=== PATIENT | female | born 1965 | race Caucasian/White ===

== ENCOUNTER → 2016-11-03 | Outpatient (CLI) | payer OTHER ==
--- NOTE | 2016-11-03 08:25 | US ---
EXAMINATION TYPE: US abdomen complete DATE OF EXAM: 11/03/2016 COMPARISON: NONE CLINICAL HISTORY: R10.11 RUQ PAIN. abd pain EXAM MEASUREMENTS: Liver Length: 16.4 cm Gallbladder Wall: 0.2 cm CBD: 0.5 cm Spleen: 10.6 cm Right Kidney: 10.0 x 4.5 x 4.5 cm Left Kidney: 11.1 x 4.9 x 6.6 cm Pancreas: wnl Liver: wnl Gallbladder: anterior wall polyp 2 mm Evidence for sonographic Colunga's sign: no CBD: wnl Spleen: wnl Right Kidney: wnl Left Kidney: 2.2cm simple appearing mid pole cyst Upper IVC: wnl Abd Aorta: wnl The liver is homogenous. The intrahepatic portion of the IVC and proximal abdominal aorta are within normal limits. There is no evidence of shadowing mobile cholelithiasis. 2 mm nonmobile and shadowin g focus is felt to reflect tiny polyp. Common bile duct is unremarkable. The visualized portions of the pancreas are homogenous. The spleen is unremarkable. Kidneys are symmetric and free of hydrone phrosis. No suspicious renal lesions are seen. A 2.2 cm simple appearing cyst left kidney is seen in lower pole level. IMPRESSION: No significant finding is seen to account for patient's symptoms.
== END | disposition home or self-care (01) ==
LOC: RADUSWWP 06:49
PROVIDERS: ATTEND Family Medicine
DX: R10.11 Right upper quadrant pain (principal)
CPT/HCPCS: 76700

== ENCOUNTER → 2017-04-02 | Outpatient (CLI) | payer BC ==
--- NOTE | 2017-04-03 09:40 | CT ---
EXAMINATION TYPE: CT abdomen pelvis w con DATE OF EXAM: 04/02/2017 COMPARISON: NONE INDICATION: Pelvic pain, worse on left x 3 weeks. Some diarrhea. DLP: 598 mGycm, Automated exposure control for dose reduction was used. CONTRAST: 100 mL of Omnipaque 300. Study performed with Oral Contrast TECHNIQUE: Axial images were obtained from above the diaphragm to the pubic rami in the axial plane a t 5 mm thick sections. Reconstructed images are reviewed on the computer in the coronal plane. FINDINGS: Limited CT sections are obtained the lung bases. The lung bases are clear. CT ABDOMEN: Liver: Normal Spleen: Normal Pancreas: Normal Adrenal glands: The adrenal glands are normal. Gallbladder: Normal Kidneys: No masses are evident. No hydronephrosis is present. There is a 2.1 cm cyst on the mid lef t kidney measuring 16 Hounsfield units. Delayed images were obtained through the kidneys, which jimmie in unremarkable. Aorta: Vascular calcification is within the aorta. Inferior vena cava: Normal. CT PELVIS: Loops of bowel within the abdomen and pelvis are normal. There are loops of bowel which are incom pletely distended or lack oral contrast limiting their evaluation. Appendix: Not identified. No suspicious inflammatory changes are evident. Urinary bladder: Normal. Genitourinary structures: Uterus and adnexa appear normal. There is a 4.6 x 4.2 cm hypodense area wit hin the posterior right pelvis. This may be a right adnexal cyst. This could be further evaluated wit h ultrasound. Free fluid could be considered within the differential. Osseous structures: No suspicious lytic or sclerotic lesions. IMPRESSIONS: 1. Probable posterior right adnexal cyst. This could be further evaluated with ultrasound. 2. No specific abnormality to account for left lower quadrant pain. 3. Left renal cyst
== END | disposition home or self-care (01) ==
LOC: RADCTMAIN 16:42
PROVIDERS: ATTEND Family Medicine
DX: N28.1 Cyst of kidney, acquired (principal)
CPT/HCPCS: 74177; Q9967

== ENCOUNTER → 2017-04-10 | Outpatient (CLI) | payer BC ==
--- NOTE | 2017-04-10 15:53 | US ---
EXAMINATION TYPE: US pelvic complete DATE OF EXAM: 04/10/2017 COMPARISON: CT CLINICAL HISTORY: N83.209 Unspecified Ovarian Cyst. TECHNIQUE: Transabdominal (TA) Date of LMP: 03/29/2017 EXAM MEASUREMENTS: Uterus: 9.2 x 5.6 x 6.9 cm Endometrial Stripe: 0.9 cm Right Ovary: 5.3 x 3.2 x 3.2 cm Left Ovary: 3.1 x 1.3 x 2.7 cm 1. Uterus: Anteverted anterior fibroid measures 1.7 x 1.4 x 1.8 cm 2. Endometrium: wnl 3. Right Ovary: simple appearing cyst measuring 4.3 x 2.3 x 1.9 cm 4. Left Ovary: wnl 5. Bilateral Adnexa: wnl 6. Posterior cul-de-sac: wnl IMPRESSION: 1. Uterine leiomyoma. 2. Simple cyst right ovary.
== END | disposition home or self-care (01) ==
LOC: RADUSWWP 15:15
PROVIDERS: ATTEND Physician Assistant
DX: N83.291 Other ovarian cyst, right side (principal); D25.9 Leiomyoma of uterus, unspecified
CPT/HCPCS: 76856

== ENCOUNTER 2017-07-31 11:07 | Emergency (ER) | payer BC ==
[2017-07-31 11:12] VITALS: TEMP 97
[2017-07-31] MEDS ORDERED: IBUPROFEN 800 MG TAB PO STA (11:26)
--- NOTE | 2017-07-31 11:27 | ED ---
General Adult HPI - General Chief complaint: Abdominal Pain Stated complaint: Side pain Time Seen by Provider: 07/31/17 11:13 Source: patient Mode of arrival: ambulatory Limitations: no limitations - History of Present Illness Initial comments: Patient is a 52-year-old female who presents with a chief complaint of right- sided back and flank pain. The patient states that over the weekend she was raking leaves and today she bent down tie her shoe and expressed a sharp pain in her back. The patient states that certain movements or aggravating, sitting still in Motrin or alleviating factors. Timing is been intermittent. Patient says that she is currently being treated for a urinary tract infection, she does not have a history of kidney stones. Patient has other significant medical history of hypertension, hypercholesterolemia, and diabetes. - Related Data Home Medications Medication Instructions Recorded Confirmed Atorvastatin [Lipitor] 10 mg PO DAILY 07/31/17 07/31/17 Cholecalciferol [Vitamin D3] 1,000 unit PO DAILY 07/31/17 07/31/17 Fluticasone/Salmeterol [Advair 1 puff INHALATION RT-BID 07/31/17 07/31/17 500-50 Diskus] Multivitamins, Thera [Multivitamin 1 tab PO DAILY 07/31/17 07/31/17 (formulary)] Sertraline HCl [Zoloft] 100 mg PO DAILY 07/31/17 07/31/17 Sulfamethox-Tmp 800-160Mg [Bactrim 1 tab PO Q12HR 07/31/17 07/31/17 DS 800-160 mg] metFORMIN HCL [Glucophage] 500 mg PO DAILY 07/31/17 07/31/17 risperiDONE [RisperDAL] 2 mg PO HS 07/31/17 07/31/17 Previous Rx's Medication Instructions Recorded Ibuprofen [Motrin] 800 mg PO TID #20 tab 07/31/17 Methocarbamol [Robaxin-750] 750 mg PO DIRECTED PRN #5 tablet 07/31/17 Allergies Allergy/AdvReac Type Severity Reaction Status Date / Time No Known Allergies Allergy Verified 07/31/17 11:17 Review of Systems ROS Statement: Those systems with pertinent positive or pertinent negative responses have been documented in the HPI. ROS Other: All systems not noted in ROS Statement are negative. Musculoskeletal: Reports: back pain Past Medical History Past Medical History: COPD, Diabetes Mellitus, Hyperlipidemia History of Any Multi-Drug Resistant Organisms: None Reported Past Surgical History: Tubal Ligation Past Psychological History: Depression Smoking Status: Current every day smoker Past Alcohol Use History: None Reported Past Drug Use History: None Reported General Exam Limitations: no limitations General appearance: alert, in no apparent distress Head exam: Present: atraumatic, normocephalic Eye exam: Present: normal appearance ENT exam: Present: normal exam Neck exam: Present: normal inspection Respiratory exam: Present: normal lung sounds bilaterally. Absent: respiratory distress, wheezes Cardiovascular Exam: Present: regular rate, normal rhythm GI/Abdominal exam: Present: soft. Absent: distended, tenderness Rectal exam: Present: deferred Extremities exam: Present: normal inspection Back exam: Present: normal inspection, full ROM, paraspinal tenderness (patient has exacerbation of pain in her right lower back with foreward flexion and left rotation. ). Absent: CVA tenderness (R), CVA tenderness (L) Course Vital Signs 07/31/17 07/31/17 11:09 12:17 Temperature 97.0 F L Pulse Rate 72 68 Respiratory 18 16 Rate Blood Pressure 115/56 113/58 O2 Sat by Pulse 98 98 Oximetry Medical Decision Making - Medical Decision Making Patient presents with chief complaint of right-sided back pain. On initial evaluation, vital signs are stable, patient is in no acute distress. Patient will be evaluated with EKG and urinalysis. Given that the patient currently has a urinary tract infection, we will evaluate for blood to see if there is necessity for imaging today. Patient given Motrin for pain control. 12:29 PM Evaluation urine shows no evidence of infection or hematuria. Etiology such as kidney stones are unlikely. EKG performed at 11:50 AM shows normal sinus rhythm a rate of 72 bpm. EKG is otherwise unremarkable. At this time, patient is stable for discharge and outpatient management. She is prescribed Motrin and Robaxin. She was instructed on the use of these medications. Patient was given exposed signs and symptoms that should prompt return visit to the emergency department. Patient verbalizes understanding. - Lab Data Lab Results 07/31/17 Range/Units 11:52 Urine Color Colorless Urine Appearance Clear (Clear) Urine pH 6.0 (5.0-8.0) Ur Specific [place] 1.001 (1.001-1.035) Urine Protein Negative (Negative) Urine Glucose (UA) Negative (Negative) Urine Ketones Negative (Negative) Urine Blood Negative (Negative) Urine Nitrite Negative (Negative) Urine Bilirubin Negative (Negative) Urine Urobilinogen <2.0 (<2.0) mg/dL Ur Leukocyte Esterase Negative (Negative) Disposition Clinical Impression: Back pain Disposition: HOME SELF-CARE Condition: Good Instructions: Low Back Strain (ED) Prescriptions: Ibuprofen [Motrin] 800 mg PO TID #20 tab Methocarbamol [Robaxin-750] 750 mg PO DIRECTED PRN #5 tablet PRN Reason: Muscle Spasm Is patient prescribed a controlled substance at d/c from ED?: No Referrals: Tony Skinner MD [Primary Care Provider] - 1-2 days
[2017-07-31 11:56] LABS: Appearance,Urine Clear (Clear); Bilirubin,Urine Negative (Negative); Blood,Urine Negative (Negative); Color,Urine Colorless; Glucose,Urine (UA) Negative (Negative); Ketones,Urine Negative (Negative); Leukocyte Esterase,Urine Negative (Negative); Nitrite,Urine Negative (Negative); Protein,Urine Negative (Negative); Specific Gravity,Urine 1.001 (1.001-1.035); Urobilinogen,Urine <2.0 mg/dL (<2.0)
[2017-07-31 12:19] VITALS: BP 113/58; PULSE 68; RESP 16
== END 2017-07-31 12:40 | disposition home or self-care (01) ==
LOC: EC 11:07
DX: M54.5 Low back pain (principal); R10.9 Unspecified abdominal pain; J44.9 Chronic obstructive pulmonary disease, unspecified; E11.9 Type 2 diabetes mellitus without complications; E78.5 Hyperlipidemia, unspecified; F32.9 Major depressive disorder, single episode, unspecified; F17.200 Nicotine dependence, unspecified, uncomplicated; Z79.51 Long term (current) use of inhaled steroids; Z79.84 Long term (current) use of oral hypoglycemic drugs; Z79.899 Other long term (current) drug therapy; E78.00 Pure hypercholesterolemia, unspecified
CPT/HCPCS: 81003; 93005; 99284

== ENCOUNTER 2017-11-06 07:40 | Day surgery (SDC) | payer BC ==
[2017-11-01 15:29] VITALS: BMI 29.8
[~2017-11-06 07:40] MED LIST: LACTATED RINGERS 1,000 ML IV SCH; LIDOCAINE 1% 20 ML VIAL (10MG/ML) FOR IV START INTRADERMA PRN; MIDAZOLAM 2 MG/2 ML VIAL IV PRN
[2017-11-06 08:34] VITALS: TEMP 98.2
[2017-11-06 08:38] LABS: Glucose,Whole Blood 88 mg/dL (75-99)
[2017-11-06] MEDS ORDERED: MIDAZOLAM 2 MG/2 ML VIAL ONE (08:48)
[2017-11-06] MEDS ORDERED: PROPOFOL 10 MG/ML 20 ML VIAL IV ONE (08:48)
[2017-11-06] MEDS ORDERED: fentaNYL (PF) 50 MCG/ML 2 ML AMP ONE (08:48)
--- NOTE | 2017-11-06 09:18 | P.PCN ---
Date of Procedure: 11/06/17 Procedure(s) Performed: Procedure: Colonoscopy and biopsy. Preoperative diagnosis: Change in bowel habits. Postoperative diagnosis: Exam of the colon and terminal ileum within normal limits. Preparation: HalfLytely prep. Sedation: Was provided by anesthesia. Brief clinical history: The patient is a 52-year-old female who is scheduled for this evaluation because of change in bowel habits in the form of loose/ diarrheic bowel movements, mostly in the mornings, that has been going on for sometime. No bleeding or extraintestinal manifestations of inflammatory bowel disease. No family history of colon cancer. This would be her first colonoscopy. Procedure: With the patient on her left lateral decubitus position and after informed consent and adequate sedation the perianal area was inspected and it did not show any fissures or fistulas. There were no masses felt on digital rectal examination. The Olympus CFQ 160L video colonoscope was then inserted in the rectum in the usual fashion and advanced to the cecum. I intubated the ileocecal valve and examined the terminal ileum. Terminal ileum and colon appeared healthy with no edema, erythema, friability, ulceration, exudation or spontaneous bleeding. No polyps or tumors were seen or any obvious diverticular disease or other pathology. I obtained biopsies from the terminal ileum and randomly from the colon then I retroflexed the endoscope in the rectum before the endoscope was withdrawn. The patient tolerated the procedure well. Plan: The patient was reassured. Will await biopsy results. She will follow- up with you as planned and further plans can be made based on her course and biopsy results. For screening for colon cancer, I recommended repeat exam in 10 years.
[2017-11-06 09:46] VITALS: BP 124/85; PULSE 63; RESP 18
== END 2017-11-06 09:59 | disposition home or self-care (01) ==
LOC: ORWHC2ENDO 07:40
DX: R19.7 Diarrhea, unspecified (principal); F17.210 Nicotine dependence, cigarettes, uncomplicated; E11.9 Type 2 diabetes mellitus without complications; J44.9 Chronic obstructive pulmonary disease, unspecified; E78.5 Hyperlipidemia, unspecified
CPT/HCPCS: 81025; 45380; J2250; J3010; J2704; 88305

== ENCOUNTER → 2018-04-01 | Outpatient (CLI) | payer BC ==
--- NOTE | 2018-04-01 16:14 | XR ---
EXAMINATION TYPE: XR chest 2V DATE OF EXAM: 04/01/2018 COMPARISON: NONE HISTORY: Chronic cough and nicotine dependence TECHNIQUE: Frontal and lateral views of the chest are obtained. FINDINGS: There is no focal air space opacity, pleural effusion, or pneumothorax seen. The cardiac silhouette size is within normal limits. The osseous structures are intact, spondylosis noted in th e visualized spine. IMPRESSION: No acute cardiopulmonary process.
== END | disposition home or self-care (01) ==
LOC: RADXRMAIN 15:46
PROVIDERS: ATTEND Physician Assistant
DX: F17.200 Nicotine dependence, unspecified, uncomplicated (principal)
CPT/HCPCS: 71046

== ENCOUNTER 2019-12-05 07:14 | Observation (INO) | payer BC ==
[2019-12-05 07:28] LABS: Glucose,Whole Blood 186 mg/dL (75-99)
[2019-12-05] MEDS ORDERED: ASPIRIN 81 MG PO STA (07:29)
[2019-12-05 07:32] VITALS: RESP 18
[2019-12-05] MEDS ORDERED: SODIUM CHLORIDE 0.9% 1,000 ML IV STA (07:38)
--- NOTE | 2019-12-05 07:40 | ED ---
General Adult HPI - General Chief complaint: Syncope Stated complaint: syncope Time Seen by Provider: 12/05/19 07:19 Source: patient, RN notes reviewed, old records reviewed Mode of arrival: EMS Limitations: no limitations - History of Present Illness Initial comments: 54-year-old female patient presents ED for evaluation. Patient reports that she was sitting down she was having a bowel movement and she felt very flushed, she felt little short of breath she had some mild sharp left anterior chest pain. She reportedly then went back to bed, laid down one unresponsive for about 10 minutes. EMS reportedly responded and found patient to be as low as 40/30. Patient was administered fluid bolus and blood pressure did increase to about 120/70 systolic. Patient alert and oriented 3. States that she is feeling much improved denies any more chest pain or shortness of breath. Denies any other complaints. Systemic: Pt denies fatigue, fever/chills, rash. Pt denies weakness, night sweats, weight loss. Neuro: Pt denies headache, visual disturbances, pre-syncope. HEENT: Pt denies ocular discharge or irritation, otalgia, rhinorrhea, pharyngitis or notable lymphadenopathy. Cardiopulmonary: Pt denies heart palpitations, dyspnea on exertion. Abdominal/GI: Pt denies abdominal pain, n/v/d. : Pt denies dysuria, burning w/ urination, frequency/urgency. Denies new onset urinary or bowel incontinence. MSK: Pt denies myalgia, loss of strength or function in extremities. Neuro: Pt denies new onset weakness, paresthesias. - Related Data Home Medications Medication Instructions Recorded Confirmed Atorvastatin [Lipitor] 10 mg PO HS 07/31/17 12/05/19 Sertraline HCl [Zoloft] 100 mg PO DAILY 07/31/17 12/05/19 metFORMIN HCL [Glucophage] 500 mg PO DAILY 07/31/17 12/05/19 risperiDONE [RisperDAL] 2 mg PO HS 07/31/17 12/05/19 Equi-Fem 2 tab PO DAILY 11/01/17 12/05/19 Mometasone/Formoterol [Dulera 200 2 puff INHALATION RT-BID 11/01/17 12/05/19 Mcg/5 Mcg Inhaler] Albuterol Sulfate [Ventolin HFA] 1 - 2 puff INHALATION RT-Q6H PRN 12/05/19 12/05/19 Cranberry Fruit Extract [Cranberry] 500 mg PO DAILY 12/05/19 12/05/19 Allergies Allergy/AdvReac Type Severity Reaction Status Date / Time No Known Allergies Allergy Verified 12/05/19 08:39 Review of Systems ROS Statement: Those systems with pertinent positive or pertinent negative responses have been documented in the HPI. ROS Other: All systems not noted in ROS Statement are negative. Past Medical History Past Medical History: COPD, Diabetes Mellitus, Hyperlipidemia History of Any Multi-Drug Resistant Organisms: None Reported Past Surgical History: Tubal Ligation Past Anesthesia/Blood Transfusion Reactions: No Reported Reaction Past Psychological History: Depression Smoking Status: Current every day smoker Past Alcohol Use History: Rare Past Drug Use History: None Reported - Past Family History Mother Family Medical History: Cancer General Exam - General Exam Comments Initial Comments: Constitutional: NAD, AOX3, Pt has pleasant affect. HEENT: NC/AT, trachea midline, neck supple, no lymphadenopathy. Posterior pharynx non erythematous, without exudates. External ears appear normal, without discharge. Mucous membranes moist. Eyes PERRLA, EOM intact. There is no scleral icterus. No pallor noted. Cardiopulmonary: RRR, no murmurs, rubs or gallops, no JVD noted. Lungs CTAB in anterior and posterior astorga. No peripheral edema. Abdominal exam: Abdomen soft and non-distended. Abdomen non-tender to palpation in all 4 quadrants. Bowel sounds active in LLQ. No hepatosplenomegaly. No ecchymosis Neuro: CN II-XII intact. No nuchal rigidity. No raccon eyes, no barnes sign, no hemotympanum. No cervical spinal tenderness. MSK: No posterior calf tenderness bilaterally, homans sign negative bilaterally. Posterior tibialis and radial pulse +2 bilaterally. Sensation intact in upper and lower extremities. Full active ROM in upper and lower extremities, 5/5 st regnth. Limitations: no limitations Course Vital Signs 12/05/19 12/05/19 12/05/19 07:19 08:03 08:37 Temperature 97.4 F L Pulse Rate 73 75 70 Respiratory 18 18 18 Rate Blood Pressure 99/48 105/63 93/54 O2 Sat by Pulse 99 100 99 Oximetry 12/05/19 09:04 Temperature Pulse Rate 70 Respiratory 18 Rate Blood Pressure 117/58 O2 Sat by Pulse 100 Oximetry Medical Decision Making - Medical Decision Making 54-year-old female patient presents to ED for evaluation of syncope. Patient is having a bowel movement she felt very lightheaded, laid down in bed with her patient was reportedly minimally responsive for the next 10 minutes however would respond to verbal questions and stimuli however less than normal. MS was contacted. Patient is found to be hypotensive. Patient administered fluid bolus. Vital signs are stable patient seemed eminently stable. Physical exam didn't display acute pathology. Patient does report that she had a little bit chest pain shortness of breath during the likely vasovagal episode. Has been symptom-free since arrival to Hospital. Laboratory investigations are obtained patient does have a mild leukocytosis, hypokalemia, hypomagnesemia. These are supplemented. Troponin 0.028. EKG nonischemic. CTA negative for pulmonary embolism. Patient will be admitted for serial troponins, further evaluation. Case discussed with Dr. Mcdermott. - Lab Data Result diagrams: 12/05/19 07:33 12/05/19 07:33 Lab Results 12/05/19 12/05/19 12/05/19 Range/Units 07:18 07:33 07:33 WBC 15.7 H (3.8-10.6) k/uL RBC 4.62 (3.80-5.40) m/uL Hgb 13.8 (11.4-16.0) gm/dL Hct 41.8 (34.0-46.0) % MCV 90.4 (80.0-100.0) fL MCH 29.9 (25.0-35.0) pg MCHC 33.1 (31.0-37.0) g/dL RDW 13.3 (11.5-15.5) % Plt Count 256 (150-450) k/uL Neutrophils % 80 % Lymphocytes % 15 % Monocytes % 3 % Eosinophils % 1 % Basophils % 0 % Neutrophils # 12.6 H (1.3-7.7) k/uL Lymphocytes # 2.4 (1.0-4.8) k/uL Monocytes # 0.5 (0-1.0) k/uL Eosinophils # 0.1 (0-0.7) k/uL Basophils # 0.1 (0-0.2) k/uL PT 10.5 (9.0-12.0) sec INR 1.0 (<1.2) APTT 24.2 (22.0-30.0) sec D-Dimer 1.11 H (<0.60) mg/L FEU Sodium (137-145) mmol/L Potassium (3.5-5.1) mmol/L Chloride (98-107) mmol/L Carbon Dioxide (22-30) mmol/L Anion Gap mmol/L BUN (7-17) mg/dL Creatinine (0.52-1.04) mg/dL Est GFR (CKD-EPI)AfAm (>60 ml/min/1.73 sqM) Est GFR (CKD-EPI)NonAf (>60 ml/min/1.73 sqM) Glucose (74-99) mg/dL POC Glucose (mg/dL) 186 H (75-99) mg/dL POC Glu Unit Assistant ID Diane Longo Plasma Lactic Acid Reji (0.7-2.0) mmol/L Calcium (8.4-10.2) mg/dL Magnesium (1.6-2.3) mg/dL Total Bilirubin (0.2-1.3) mg/dL AST (14-36) U/L ALT (4-34) U/L Alkaline Phosphatase (38-126) U/L Troponin I (0.000-0.034) ng/mL NT-Pro-B Natriuret Pep pg/mL Total Protein (6.3-8.2) g/dL Albumin (3.5-5.0) g/dL Urine Color Urine Appearance (Clear) Urine pH (5.0-8.0) Ur Specific Shunk (1.001-1.035) Urine Protein (Negative) Urine Glucose (UA) (Negative) Urine Ketones (Negative) Urine Blood (Negative) Urine Nitrite (Negative) Urine Bilirubin (Negative) Urine Urobilinogen (<2.0) mg/dL Ur Leukocyte Esterase (Negative) Urine RBC (0-5) /hpf Urine WBC (0-5) /hpf Ur Squamous Epith Cells (0-4) /hpf Hyaline Casts (0-2) /lpf Urine Mucus (None) /hpf 12/05/19 12/05/19 12/05/19 Range/Units 07:33 07:33 07:33 WBC (3.8-10.6) k/uL RBC (3.80-5.40) m/uL Hgb (11.4-16.0) gm/dL Hct (34.0-46.0) % MCV (80.0-100.0) fL MCH (25.0-35.0) pg MCHC (31.0-37.0) g/dL RDW (11.5-15.5) % Plt Count (150-450) k/uL Neutrophils % % Lymphocytes % % Monocytes % % Eosinophils % % Basophils % % Neutrophils # (1.3-7.7) k/uL Lymphocytes # (1.0-4.8) k/uL Monocytes # (0-1.0) k/uL Eosinophils # (0-0.7) k/uL Basophils # (0-0.2) k/uL PT (9.0-12.0) sec INR (<1.2) APTT (22.0-30.0) sec D-Dimer (<0.60) mg/L FEU Sodium 138 (137-145) mmol/L Potassium 3.0 L (3.5-5.1) mmol/L Chloride 109 H (98-107) mmol/L Carbon Dioxide 22 (22-30) mmol/L Anion Gap 7 mmol/L BUN 8 (7-17) mg/dL Creatinine 0.65 (0.52-1.04) mg/dL Est GFR (CKD-EPI)AfAm >90 (>60 ml/min/1.73 sqM) Est GFR (CKD-EPI)NonAf >90 (>60 ml/min/1.73 sqM) Glucose 193 H (74-99) mg/dL POC Glucose (mg/dL) (75-99) mg/dL POC Glu Unit Assistant ID Plasma Lactic Acid Reji (0.7-2.0) mmol/L Calcium 8.2 L (8.4-10.2) mg/dL Magnesium 1.5 L (1.6-2.3) mg/dL Total Bilirubin 0.2 (0.2-1.3) mg/dL AST 20 (14-36) U/L ALT 18 (4-34) U/L Alkaline Phosphatase 85 (38-126) U/L Troponin I 0.028 (0.000-0.034) ng/mL NT-Pro-B Natriuret Pep 42 pg/mL Total Protein 5.2 L (6.3-8.2) g/dL Albumin 3.2 L (3.5-5.0) g/dL Urine Color Urine Appearance (Clear) Urine pH (5.0-8.0) Ur Specific Shunk (1.001-1.035) Urine Protein (Negative) Urine Glucose (UA) (Negative) Urine Ketones (Negative) Urine Blood (Negative) Urine Nitrite (Negative) Urine Bilirubin (Negative) Urine Urobilinogen (<2.0) mg/dL Ur Leukocyte Esterase (Negative) Urine RBC (0-5) /hpf Urine WBC (0-5) /hpf Ur Squamous Epith Cells (0-4) /hpf Hyaline Casts (0-2) /lpf Urine Mucus (None) /hpf 12/05/19 12/05/19 Range/Units 07:33 07:33 WBC (3.8-10.6) k/uL RBC (3.80-5.40) m/uL Hgb (11.4-16.0) gm/dL Hct (34.0-46.0) % MCV (80.0-100.0) fL MCH (25.0-35.0) pg MCHC (31.0-37.0) g/dL RDW (11.5-15.5) % Plt Count (150-450) k/uL Neutrophils % % Lymphocytes % % Monocytes % % Eosinophils % % Basophils % % Neutrophils # (1.3-7.7) k/uL Lymphocytes # (1.0-4.8) k/uL Monocytes # (0-1.0) k/uL Eosinophils # (0-0.7) k/uL Basophils # (0-0.2) k/uL PT (9.0-12.0) sec INR (<1.2) APTT (22.0-30.0) sec D-Dimer (<0.60) mg/L FEU Sodium (137-145) mmol/L Potassium (3.5-5.1) mmol/L Chloride (98-107) mmol/L Carbon Dioxide (22-30) mmol/L Anion Gap mmol/L BUN (7-17) mg/dL Creatinine (0.52-1.04) mg/dL Est GFR (CKD-EPI)AfAm (>60 ml/min/1.73 sqM) Est GFR (CKD-EPI)NonAf (>60 ml/min/1.73 sqM) Glucose (74-99) mg/dL POC Glucose (mg/dL) (75-99) mg/dL POC Glu Unit Assistant ID Plasma Lactic Acid Reji 1.8 (0.7-2.0) mmol/L Calcium (8.4-10.2) mg/dL Magnesium (1.6-2.3) mg/dL Total Bilirubin (0.2-1.3) mg/dL AST (14-36) U/L ALT (4-34) U/L Alkaline Phosphatase (38-126) U/L Troponin I (0.000-0.034) ng/mL NT-Pro-B Natriuret Pep pg/mL Total Protein (6.3-8.2) g/dL Albumin (3.5-5.0) g/dL Urine Color Yellow Urine Appearance Clear (Clear) Urine pH 8.0 (5.0-8.0) Ur Specific Shunk 1.010 (1.001-1.035) Urine Protein 1+ H (Negative) Urine Glucose (UA) Negative (Negative) Urine Ketones Negative (Negative) Urine Blood Negative (Negative) Urine Nitrite Negative (Negative) Urine Bilirubin Negative (Negative) Urine Urobilinogen <2.0 (<2.0) mg/dL Ur Leukocyte Esterase Negative (Negative) Urine RBC <1 (0-5) /hpf Urine WBC 1 (0-5) /hpf Ur Squamous Epith Cells 1 (0-4) /hpf Hyaline Casts 12 H (0-2) /lpf Urine Mucus Rare H (None) /hpf - EKG Data -: EKG Interpreted by Me (and Dr. Mcdermott ) EKG Comments: Ventricular rate 66, AR interval 158, QRS 108, QT/QTC 488/511. Normal sensory rhythm with sinus arrhythmia. Prolonged QT, abnormal EKG. Disposition Clinical Impression: Syncope, Chest pain, Hypomagnesemia, Hypotension, Hypokalemia Disposition: ADMITTED IP TO THIS HOSP Condition: Serious Is patient prescribed a controlled substance at d/c from ED?: No Referrals: Tony Skinner MD [Primary Care Provider] - 1-2 days
[2019-12-05] MEDS ORDERED: SODIUM CHLORIDE 0.9% 500 ML 500 ML IV ONE (07:44)
[2019-12-05 07:47] LABS: Basophils # (A) 0.1 k/uL (0-0.2); Basophils % (A) 0 %; Eosinophils # (A) 0.1 k/uL (0-0.7); Eosinophils % (A) 1 %; HCT 41.8 % (34.0-46.0); HGB 13.8 gm/dL (11.4-16.0); Lymphocytes # (A) 2.4 k/uL (1.0-4.8); Lymphocytes % (A) 15 %; MCH 29.9 pg (25.0-35.0); MCHC 33.1 g/dL (31.0-37.0); MCV 90.4 fL (80.0-100.0); Mean Platelet Volume 6.8; Monocytes # (A) 0.5 k/uL (0-1.0); Monocytes % (A) 3 %; Neutrophils # (A) 12.6 k/uL (1.3-7.7); Neutrophils % (A) 80 %; Platelet Count 256 k/uL (150-450); RBC 4.62 m/uL (3.80-5.40); RDW 13.3 % (11.5-15.5); WBC 15.7 k/uL (3.8-10.6)
[2019-12-05 07:58] LABS: ALT 18 U/L (4-34); AST 20 U/L (14-36); African American GFR (CKD) >90 (>60 ml/min/1.73 sqM); Albumin 3.2 g/dL (3.5-5.0); Alkaline Phosphatase 85 U/L (38-126); Anion Gap 7 mmol/L; Blood Urea Nitrogen 8 mg/dL (7-17); Calcium 8.2 mg/dL (8.4-10.2); Carbon Dioxide 22 mmol/L (22-30); Chloride 109 mmol/L (98-107); Glucose 193 mg/dL (74-99); Magnesium 1.5 mg/dL (1.6-2.3); Non-African American GFR(CKD) >90 (>60 ml/min/1.73 sqM); Sodium 138 mmol/L (137-145); Total Bilirubin 0.2 mg/dL (0.2-1.3); Total Protein 5.2 g/dL (6.3-8.2)
[2019-12-05 08:07] LABS: Partial Thromboplastin Time 24.2 sec (22.0-30.0); Prothrombin Time 10.5 sec (9.0-12.0)
--- NOTE | 2019-12-05 08:10 | XR ---
EXAMINATION TYPE: XR chest 2V DATE OF EXAM: 12/05/2019 COMPARISON: Prior chest x-ray 04/01/2018 HISTORY: Chest pain and weakness TECHNIQUE: Frontal and lateral views of the chest are obtained. FINDINGS: There is no focal air space opacity, pleural effusion, or pneumothorax seen. The cardiac silhouette size is within normal limits. The osseous structures are intact. IMPRESSION: No acute cardiopulmonary process.
[2019-12-05 08:18] LABS: D-Dimer 1.11 mg/L FEU (<0.60)
[2019-12-05] MEDS ORDERED: POTASSIUM CHLORIDE ER 20 MEQ TAB.ER PO STA (08:36)
[2019-12-05] MEDS ORDERED: MAGNESIUM OXIDE 400 MG TAB PO STA (08:36)
[2019-12-05 08:41] LABS: Appearance,Urine Clear (Clear); Bilirubin,Urine Negative (Negative); Blood,Urine Negative (Negative); Color,Urine Yellow; Glucose,Urine (UA) Negative (Negative); Hyaline Casts,Urine 12 /lpf (0-2); Ketones,Urine Negative (Negative); Leukocyte Esterase,Urine Negative (Negative); Mucus,Urine Rare /hpf; Nitrite,Urine Negative (Negative); Protein,Urine 1+ (Negative); RBC,Urine <1 /hpf (0-5); Squamous Epithelial Cell,Urine 1 /hpf (0-4); Urobilinogen,Urine <2.0 mg/dL (<2.0); WBC,Urine 1 /hpf (0-5)
--- NOTE | 2019-12-05 09:19 | CT ---
EXAMINATION TYPE: CT chest angio for PE DATE OF EXAM: 12/05/2019 COMPARISON: None HISTORY: Elev. D dimer CT DLP: 444.2 mGycm CONTRAST: CT chest with contrast and 3D reconstruction with MIP imaging is performed with IV Contrast, patient injected with 80 mL of Isovue 370. Contrast-enhanced CT of the chest was performed through the course of the pulmonary arteries with verna g and mediastinal window settings submitted. 3D reconstruction with MIP imaging was also performed. PULMONARY ARTERIES: The pulmonary arteries and their major tributaries are patent. I do not see claudy dence for sizable filling defect to suggest pulmonary embolic process. LUNGS: The lungs are clear and free of infiltrate. Minimal basilar atelectasis and tiny effusions. No pulmonary nodule or mass is detected. MEDIASTINUM: Thoracic aorta is of normal caliber,however, evaluation is limited given timing of the contrast bolus. If there is concern for thoracic aortic pathology consider DANIEL. Correlate clinicall y . The heart is not enlarged. No evidence for mediastinal mass. No mediastinal lymph nodes greater than 1cm. HILAR STRUCTURES: No evidence for mass. No hilar lymph nodes greater than 1 cm. UPPER ABDOMEN: No significant abnormality is seen. IMPRESSION: 1. No evidence for Pulmonary embolism at this time.
[2019-12-05] MEDS ORDERED: NITROGLYCERIN SL TABS 0.4 MG TAB SUBLINGUAL PRN (09:25)
[2019-12-05] MEDS ORDERED: Potassium Replacement Protocol 1 EACH MISC MISCELLANE PRN (10:26)
[2019-12-05] MEDS ORDERED: Magnesium Replacement Protocol 1 EACH MISC MISCELLANE PRN (10:28)
[2019-12-05] MEDS ORDERED: ALBUTEROL NEBULIZED 2.5 MG/3 ML INHALATION PRN (11:56)
[2019-12-05 12:12] LABS: Glucose,Whole Blood 81 mg/dL (75-99)
[2019-12-05] MEDS: MAGNESIUM SULFATE-D5W PMX 1 GM in DEXTROSE/WATER 1 100ML.BAG IVPB SCH ×4 (12:32→16:36)
[2019-12-05] MEDS: POTASSIUM CHLORIDE ER 20 MEQ TAB.ER PO SCH ×2 (12:32→13:57)
[2019-12-05] MEDS: SODIUM CHLORIDE 0.9% 1,000 ML IV SCH (12:36)
[2019-12-05] MEDS: INSULIN ASPART (NovoLOG) 100 UNIT/ML VIAL SQ SCH ×2 (12:36→17:10)
[2019-12-05] MEDS ORDERED: HEPARIN SODIUM,PORCINE 5,000 UNIT/ML 1 ML VIAL IV PRN (12:46)
[2019-12-05] MEDS ORDERED: HEPARIN SODIUM,PORCINE 5,000 UNIT/ML 1 ML VIAL IV ONE (12:46)
--- NOTE | 2019-12-05 12:57 | P.HPIM ---
History of Present Illness 54-year-old pleasant female came in after syncopal episode patient was having a bowel movement after with the patient felt lightheaded completely flushed and with the help of the patient was able to lie on the bed subsequently lost consciousness for about 10 minutes. When EMS arrived her blood pressure is extremely low and it was noted about 40 x 30 the may not be accurate. Patient was given a fluid bolus was subsequently transferred to ER. Patient to denied any obvious chest pain was although she did complain of chest pain. Physician patient apparently complained of shoulder pain to the and the left shoul eboni area. This pain is not associated syncope denied any shortness of breath diaphoresis nausea or vomiting associated with the patient and diarrhea.. Patient EKG showed sinus rhythm without any acute ST-T wave changes. But QTC is bit prolonged. Patient is on Risperdal which can prolong QT as well as Zoloft. I'll repeat another EKG if it continues to be prolonged then and we may need to change one of these medications. Review of Systems REVIEW OF SYSTEMS: CONSTITUTIONAL: No fever, no malaise, no fatigue. HEENT: No recent visual problems or hearing problems. Denied any sore throat. CARDIOVASCULAR: No chest pain, orthopnea, PND, no palpitations. PULMONARY: No shortness of breath, no cough, no hemoptysis. GASTROINTESTINAL: No diarrhea, no nausea, no vomiting, no abdominal pain. NEUROLOGICAL: No headaches, no weakness, no numbness. HEMATOLOGICAL: Denies any bleeding or petechiae. GENITOURINARY: Denies any burning micturition, frequency, or urgency. MUSCULOSKELETAL/RHEUMATOLOGICAL: Denies any joint pain, swelling, or any muscle pain. ENDOCRINE: Denies any polyuria or polydipsia. The rest of the 14-point review of systems is negative. Past Medical History Past Medical History: COPD, Diabetes Mellitus, Hyperlipidemia History of Any Multi-Drug Resistant Organisms: None Reported Past Surgical History: Tubal Ligation Additional Past Surgical History / Comment(s): cataract surg Past Anesthesia/Blood Transfusion Reactions: No Reported Reaction Past Psychological History: Depression Smoking Status: Current every day smoker Past Alcohol Use History: Rare Additional Past Alcohol Use History / Comment(s): smoker for 25 years 1ppd Past Drug Use History: None Reported - Past Family History Mother Family Medical History: Cancer Father Family Medical History: CVA/TIA, Myocardial Infarction ([place]) Medications and Allergies Home Medications Medication Instructions Recorded Confirmed Type Atorvastatin [Lipitor] 10 mg PO HS 07/31/17 12/05/19 History Sertraline HCl [Zoloft] 100 mg PO DAILY 07/31/17 12/05/19 History metFORMIN HCL [Glucophage] 500 mg PO DAILY 07/31/17 12/05/19 History risperiDONE [RisperDAL] 2 mg PO HS 07/31/17 12/05/19 History Equi-Fem 2 tab PO DAILY 11/01/17 12/05/19 History Mometasone/Formoterol [Dulera 200 2 puff INHALATION RT-BID 11/01/17 12/05/19 History Mcg/5 Mcg Inhaler] Albuterol Sulfate [Ventolin HFA] 1 - 2 puff INHALATION RT-Q6H PRN 12/05/19 12/05/19 History Cranberry Fruit Extract [Cranberry] 500 mg PO DAILY 12/05/19 12/05/19 History Allergies Allergy/AdvReac Type Severity Reaction Status Date / Time No Known Allergies Allergy Verified 12/05/19 08:39 Physical Exam Vitals: Vital Signs Temp Pulse Pulse Resp BP BP Pulse Ox 12/05/19 10:24 98.6 F 68 18 107/53 94 L 12/05/19 10:18 97.7 F 68 18 104/65 96 12/05/19 09:04 70 18 117/58 100 12/05/19 08:37 97.4 F L 70 18 93/54 99 12/05/19 08:03 75 18 105/63 100 12/05/19 07:19 73 18 99/48 99 Intake and Output 12/04/19 12/05/19 12/05/19 22:59 06:59 14:59 Other: # Voids 1 Weight 83.007 kg PHYSICAL EXAMINATION: GENERAL: The patient is alert and oriented x3, not in any acute distress. Well developed, well nourished. HEENT: Pupils are round and equally reacting to light. EOMI. No scleral icterus. No conjunctival pallor. Normocephalic, atraumatic. No pharyngeal erythema. No thyromegaly. CARDIOVASCULAR: S1 and S2 present. No murmurs, rubs, or gallops. PULMONARY: Chest is clear to auscultation, no wheezing or crackles. ABDOMEN: Soft, nontender, nondistended, normoactive bowel sounds. No palpable organomegaly. MUSCULOSKELETAL: No joint swelling or deformity. EXTREMITIES: No cyanosis, clubbing, or pedal edema. NEUROLOGICAL: Gross neurological examination did not reveal any focal deficits. SKIN: No rashes. Results CBC & Chem 7: 12/05/19 07:33 12/05/19 07:33 Labs: Abnormal Lab Results - Last 24 Hours (Table) 12/05/19 12/05/19 12/05/19 Range/Units 07:18 07:33 07:33 WBC 15.7 H (3.8-10.6) k/uL Neutrophils # 12.6 H (1.3-7.7) k/uL D-Dimer 1.11 H (<0.60) mg/L FEU Potassium (3.5-5.1) mmol/L Chloride (98-107) mmol/L Glucose (74-99) mg/dL POC Glucose (mg/dL) 186 H (75-99) mg/dL Calcium (8.4-10.2) mg/dL Magnesium (1.6-2.3) mg/dL Troponin I (0.000-0.034) ng/mL Total Protein (6.3-8.2) g/dL Albumin (3.5-5.0) g/dL Urine Protein (Negative) Hyaline Casts (0-2) /lpf Urine Mucus (None) /hpf 12/05/19 12/05/19 12/05/19 Range/Units 07:33 07:33 11:25 WBC (3.8-10.6) k/uL Neutrophils # (1.3-7.7) k/uL D-Dimer (<0.60) mg/L FEU Potassium 3.0 L (3.5-5.1) mmol/L Chloride 109 H (98-107) mmol/L Glucose 193 H (74-99) mg/dL POC Glucose (mg/dL) (75-99) mg/dL Calcium 8.2 L (8.4-10.2) mg/dL Magnesium 1.5 L (1.6-2.3) mg/dL Troponin I 0.135 H* (0.000-0.034) ng/mL Total Protein 5.2 L (6.3-8.2) g/dL Albumin 3.2 L (3.5-5.0) g/dL Urine Protein 1+ H (Negative) Hyaline Casts 12 H (0-2) /lpf Urine Mucus Rare H (None) /hpf Thrombosis Risk Factor Assmnt - Choose All That Apply Each Factor Represents 1 point: Abnormal pulmonary function (COPD), Age 41-60 years Other congenital or acquired thrombophilia - If yes, enter type in comment: No Thrombosis Risk Factor Assessment Total Risk Factor Score: 2 Thrombosis Risk Factor Assessment Level: Low Risk Assessment and Plan Plan: Syncope: Possibly vasovagal from the history. Patient doesn't appear to have any seizure. Patient blood pressure was extremely low patient was given IV fluid transfusion no diarrhea. -Prolonged QT with QTC of around 500: Patient is on Risperdal and sertraline: I did discuss with the psychiatric regarding this plan is to continue these medications as is and the. -Questionable history of chest pain: We'll rule out acute coronary syndromes cardio he was consulted as well -Type 2 diabetes mellitus -Hyperlipidemia -COPD without any acute exacerbation -Continued nicotine use: Counseling was provided -DVT prophylaxis early ambulation
--- NOTE | 2019-12-05 13:18 | P.CRDCN ---
History of Present Illness History of present illness: HISTORY OF PRESENTING ILLNESS This is a pleasant 54-year-old female past medical history significant for diabetes mellitus, dyslipidemia, COPD and chronic nicotine dependence. She denies prior history of coronary artery disease and does not follow with a editor newspaper for any reason. We have been asked to see in consultation for syncope and chest pain. She states she was using the bathroom having a bowel movement this morning. She was done and washing her hands when she started feeling lightheaded and again had the urge to have another bowel movement. She sat back down on the toilet and had another bowel movement. She still felt light headed so she called her to assist her back to bed. While he was laying her down she started looking worse, pale, diaphoretic and short of breath. He called EMS. She states they were attempting to get her to walk to the rig when she again felt light headed and then passed out. EMS initial blood pressure was 40/30. She is seen and examined sitting up in bed in no acute distress. She feels back to her baseline with no further dizziness or shortness of breath. She denies having any symptoms of chest pain throughout this episode. DIAGNOSTICS EKG reveals sinus mechanism with no acute ischemic changes. Chest xray negative for an acute cardiopulmonary process. CTA negative for PE. Laboratory reviewed, WBC 15.7, hgb 13.8, d-dimer 1.11, sodium 138, potassium 3.0, creatinine 0.65, magnesium 1.5, troponin 0.028 and 0.135. Current cardiac medications include atorvastatin 10 mg daily. REVIEW OF SYSTEMS At the time of my exam: CONSTITUTIONAL: Denies fever or chills. CARDIOVASCULAR: Denies chest pain, shortness of breath, orthopnea, PND or palpitations. RESPIRATORY: Denies cough. GASTROINTESTINAL: Denies abdominal pain, diarrhea, constipation, nausea or vomiting. MUSCULOSKELETAL: Denies myalgias. NEUROLOGIC: Denies numbness, tingling or weakness. ENDOCRINE: Denies fatigue, weight change, polydipsia or polyurina. GENITOURINARY: Denies burning, hematuria or urgency with micturation. HEMATOLOGIC: Denies history of anemia or bleeding. PHYSICAL EXAMINATION Blood pressure 107/53 heart rate 68 afebrile and maintaining oxygen saturation on room air. CONSTITUTIONAL: No apparent distress. HEENT: Head is normocephalic. Pupils are equal, round. Sclerae anicteric. Mucous membranes of the mouth are moist. No JVD. No carotid bruit. CHEST EXAMINATION: Lungs are clear to auscultation. No chest wall tenderness is noted on palpation or with deep breathing. HEART EXAMINATION: Regular rate and rhythm. S1, S2 heard. No murmurs, gallops or rub. ABDOMEN: Soft, nontender. Positive bowel sounds. EXTREMITIES: 2+ peripheral pulses, no lower extremity edema and no calf tenderness. NEUROLOGIC EXAMINATION: Patient is awake, alert and oriented x3. ASSESSMENT Syncope Hypotension Elevated troponin, could be related to an acute event or hypoperfusion Diabetes mellitus Dyslipidemia COPD Chronic nicotine dependence PLAN Continue to obtain third troponin to assess for trend. Obtain 2-D echocardiogram and Doppler study to assess cardiac structure and function. Initiate aspirin 81 mg daily. Check for orthostatic changes. Further recommendations to follow based upon clinical course. Thank you kindly for this consultation. Nurse Practitioner note has been reviewed, I agree with a documented findings and plan of care. Patient was seen and examined. Past Medical History Past Medical History: COPD, Diabetes Mellitus, Hyperlipidemia History of Any Multi-Drug Resistant Organisms: None Reported Past Surgical History: Tubal Ligation Additional Past Surgical History / Comment(s): cataract surg Past Anesthesia/Blood Transfusion Reactions: No Reported Reaction Past Psychological History: Depression Smoking Status: Current every day smoker Past Alcohol Use History: Rare Additional Past Alcohol Use History / Comment(s): smoker for 25 years 1ppd Past Drug Use History: None Reported - Past Family History Mother Family Medical History: Cancer Father Family Medical History: CVA/TIA, Myocardial Infarction ([place]) Medications and Allergies Home Medications Medication Instructions Recorded Confirmed Type Atorvastatin [Lipitor] 10 mg PO HS 07/31/17 12/05/19 History Sertraline HCl [Zoloft] 100 mg PO DAILY 07/31/17 12/05/19 History metFORMIN HCL [Glucophage] 500 mg PO DAILY 07/31/17 12/05/19 History risperiDONE [RisperDAL] 2 mg PO HS 07/31/17 12/05/19 History Equi-Fem 2 tab PO DAILY 11/01/17 12/05/19 History Mometasone/Formoterol [Dulera 200 2 puff INHALATION RT-BID 11/01/17 12/05/19 History Mcg/5 Mcg Inhaler] Albuterol Sulfate [Ventolin HFA] 1 - 2 puff INHALATION RT-Q6H PRN 12/05/19 12/05/19 History Cranberry Fruit Extract [Cranberry] 500 mg PO DAILY 12/05/19 12/05/19 History Allergies Allergy/AdvReac Type Severity Reaction Status Date / Time No Known Allergies Allergy Verified 12/05/19 08:39 Physical Exam Vitals: Vital Signs Temp Pulse Pulse Resp BP BP Pulse Ox 12/05/19 10:24 98.6 F 68 18 107/53 94 L 12/05/19 10:18 97.7 F 68 18 104/65 96 12/05/19 09:04 70 18 117/58 100 12/05/19 08:37 97.4 F L 70 18 93/54 99 12/05/19 08:03 75 18 105/63 100 12/05/19 07:19 73 18 99/48 99 Intake and Output 12/04/19 12/05/19 12/05/19 22:59 06:59 14:59 Other: # Voids 1 Weight 83.007 kg Results 12/05/19 07:33 12/05/19 07:33 Cardiac Enzymes 12/05/19 12/05/19 12/05/19 Range/Units 07:33 07:33 11:25 AST 20 (14-36) U/L Troponin I 0.028 0.135 H* (0.000-0.034) ng/mL Coagulation 12/05/19 Range/Units 07:33 PT 10.5 (9.0-12.0) sec APTT 24.2 (22.0-30.0) sec CBC 12/05/19 Range/Units 07:33 WBC 15.7 H (3.8-10.6) k/uL RBC 4.62 (3.80-5.40) m/uL Hgb 13.8 (11.4-16.0) gm/dL Hct 41.8 (34.0-46.0) % Plt Count 256 (150-450) k/uL Comprehensive Metabolic Panel 12/05/19 Range/Units 07:33 Sodium 138 (137-145) mmol/L Potassium 3.0 L (3.5-5.1) mmol/L Chloride 109 H (98-107) mmol/L Carbon Dioxide 22 (22-30) mmol/L BUN 8 (7-17) mg/dL Creatinine 0.65 (0.52-1.04) mg/dL Glucose 193 H (74-99) mg/dL Calcium 8.2 L (8.4-10.2) mg/dL AST 20 (14-36) U/L ALT 18 (4-34) U/L Alkaline Phosphatase 85 (38-126) U/L Total Protein 5.2 L (6.3-8.2) g/dL Albumin 3.2 L (3.5-5.0) g/dL Current Medications Generic Name Dose Route Start Last Admin Trade Name Freq PRN Reason Stop Dose Admin Albuterol Sulfate 2.5 mg 12/05/19 11:56 Albuterol Nebulized 2.5 Mg/3 Ml INHALATION RT-Q6H PRN Shortness Of Breath Aspirin 81 mg 12/06/19 09:00 Aspirin 81 Mg PO DAILY [facility] Atorvastatin Calcium 10 mg 12/05/19 21:00 Atorvastatin 10 Mg Tab PO HS [facility] Budesonide/Formoterol Fumarate 2 puff 12/05/19 20:00 Symbicort 160-4.5 Mcg Inhaler INHALATION RT-BID BETO Heparin Sodium (Porcine) 4,000 unit 12/05/19 12:46 Heparin Sodium,Porcine 5,000 Unit/Ml 1 Ml Vial IV 12/05/19 12:47 ONCE ONE Heparin Sodium (Porcine) 0 unit 12/05/19 12:46 Heparin Sodium,Porcine 5,000 Unit/Ml 1 Ml Vial IV PER PROTOCOL PRN Low PTT Protocol Sodium Chloride 1,000 mls @ 100 mls/hr 12/05/19 12:00 12/05/19 12:36 Saline 0.9% IV 100 mls/hr .Q10H BETO Administration Heparin Sodium/Sodium Chloride 250 mls @ 9.961 mls/hr 12/05/19 13:00 25,000 unit/ Sodium Chloride IV .Q24H [facility]O Protocol 12 UNITS/KG/HR Insulin Aspart 0 unit 12/05/19 12:30 12/05/19 12:36 Insulin Aspart (Novolog) 100 Unit/Ml Vial SQ Not Given ACHS [facility] Protocol Metformin HCl 500 mg 12/06/19 09:00 Metformin 500 Mg Tab PO DAILY [facility]O Miscellaneous Information 1 each 12/05/19 10:26 Potassium Replacement Protocol 1 Each Misc MISCELLANE DAILY PRN Per Protocol Protocol Miscellaneous Information 1 each 12/05/19 10:28 Magnesium Replacement Protocol 1 Each Misc MISCELLANE DAILY PRN Per Protocol Protocol Nitroglycerin 0.4 mg 12/05/19 09:25 Nitroglycerin Sl Tabs 0.4 Mg Tab SUBLINGUAL Q5M PRN Chest Pain Risperidone 2 mg 12/05/19 21:00 Risperidone 2 Mg Tab PO HS BETO Sertraline HCl 100 mg 12/06/19 09:00 Sertraline 100 Mg Tab PO DAILY BETO Intake and Output 12/04/19 12/05/19 12/05/19 22:59 06:59 14:59 Other: # Voids 1 Weight 83.007 kg Patient Weight 12/06/19 06:59 Weight 83.007 kg 12/05/19 07:33 12/05/19 07:33
[2019-12-05] MEDS: HEPARIN SOD,PORK IN 0.45% NACL 25,000 UNIT in 0.45% NACL 1 250ML.BAG IV SCH (14:20)
[2019-12-05 16:31] LABS: Glucose,Whole Blood 102 mg/dL (75-99)
[2019-12-05 20:42] LABS: Glucose,Whole Blood 108 mg/dL (75-99)
[2019-12-05] MEDS ORDERED: risperiDONE 2 MG TAB PO SCH (21:00)
[2019-12-05] MEDS ORDERED: ATORVASTATIN 10 MG TAB PO SCH (21:00)
[2019-12-05] MEDS: SYMBICORT 160-4.5 MCG INHALER INHALATION SCH (21:54)
[2019-12-06 05:58] LABS: Glucose,Whole Blood 106 mg/dL (75-99)
[2019-12-06 06:47] LABS: Basophils % (A) 1 %; Eosinophils # (A) 0.3 k/uL (0-0.7); Eosinophils % (A) 3 %; HCT 42.5 % (34.0-46.0); HGB 13.9 gm/dL (11.4-16.0); Lymphocytes # (A) 3.3 k/uL (1.0-4.8); Lymphocytes % (A) 36 %; MCH 29.8 pg (25.0-35.0); MCHC 32.7 g/dL (31.0-37.0); MCV 91.2 fL (80.0-100.0); Mean Platelet Volume 6.9; Monocytes # (A) 0.4 k/uL (0-1.0); Monocytes % (A) 4 %; Neutrophils # (A) 5.2 k/uL (1.3-7.7); Neutrophils % (A) 56 %; Platelet Count 286 k/uL (150-450); RBC 4.66 m/uL (3.80-5.40); RDW 13.3 % (11.5-15.5); WBC 9.2 k/uL (3.8-10.6)
[2019-12-06 07:05] LABS: Magnesium 2.2 mg/dL (1.6-2.3)
[2019-12-06] MEDS: SYMBICORT 160-4.5 MCG INHALER INHALATION SCH (07:42)
[2019-12-06] MEDS: SODIUM CHLORIDE 0.9% 1,000 ML IV SCH ×2 (08:06→09:50)
[2019-12-06] MEDS: INSULIN ASPART (NovoLOG) 100 UNIT/ML VIAL SQ SCH ×2 (08:07→13:03)
--- NOTE | 2019-12-06 08:39 | ECHOF ---
Referral Reason:Syncope MEASUREMENTS -------- HEIGHT: 157.5 cm WEIGHT: 83.0 kg BP: IVSd: 1.0 cm (0.6 - 1.1) LVIDd: 5.1 cm (3.9 - 5.3) LVPWd: 1.0 cm (0.6 - 1.1) IVSs: 2.0 cm LVIDs: 2.6 cm LVPWs: 1.7 cm RVIDd: 2.3 cm (< 3.3) LAESV Index (A-L): 21.81 ml/m Ao Diam: 2.6 cm (2.0 - 3.7) LA Diam: 2.8 cm (2.7 - 3.8) AV Cusp: 1.9 cm (1.5 - 2.6) EPSS: 0.6 cm MV E Nathan: 1.18 m/s MV DecT: 250 ms MV A Nathan: 0.92 m/s MV E/A Ratio: 1.28 RAP: 5.00 mmHg RVSP: 25.41 mmHg MV EF SLOPE: 100.96 mm/s (70 - 150) MV EXCURSION: 12.84 mm (> 18.000) FINDINGS -------- Sinus rhythm. This was a technically good study. The left ventricular size is normal. Left ventricular wall thickness is normal. Overall left vent ricular systolic function is normal with, an EF between 55 - 60 %. The diastolic filling pattern is normal for the age of the patient 13.94. The right ventricle is normal in size. The left atrial size is normal. Normal LA size by volume 22+/-6 ml/m2. The right atrial size is normal. The aortic valve is trileaflet and appears structurally normal. The mitral valve is normal. Mild mitral regurgitation is present. The tricuspid valve appears structurally normal. Mild tricuspid regurgitation present. Right vent ricular systolic pressure is normal at < 35 mmHg. There is no pulmonic regurgitation present. The aortic root size is normal. Normal inferior vena cava with normal inspiratory collapse consistent with estimated right atrial pre ssure of 5 mmHg. There is no pericardial effusion. CONCLUSIONS -------- 1. The left ventricular size is normal. 2. Left ventricular wall thickness is normal. 3. Overall left ventricular systolic function is normal with, an EF between 55 - 60 %. 4. The diastolic filling pattern is normal for the age of the patient 13.94 5. Mild mitral regurgitation is present. 6. Mild tricuspid regurgitation present. 7. There is no pericardial effusion. TOLL COLLECTOR: Angela Marino RDCS
[2019-12-06] MEDS ORDERED: metFORMIN 500 MG TAB PO SCH (09:00)
[2019-12-06] MEDS ORDERED: ASPIRIN 81 MG PO SCH (09:00)
[2019-12-06] MEDS ORDERED: SERTRALINE 100 MG TAB PO SCH (09:00)
[2019-12-06] MEDS ORDERED: ASPIRIN 325 MG TAB PO SCH (09:00)
[2019-12-06 09:08] LABS: African American GFR (CKD) >90 (>60 ml/min/1.73 sqM); Anion Gap 7 mmol/L; Blood Urea Nitrogen 7 mg/dL (7-17); Carbon Dioxide 23 mmol/L (22-30); Chloride 112 mmol/L (98-107); Glucose 102 mg/dL (74-99); Non-African American GFR(CKD) >90 (>60 ml/min/1.73 sqM); Potassium 4.1 mmol/L (3.5-5.1); Sodium 142 mmol/L (137-145)
[2019-12-06] MEDS: HEPARIN SOD,PORK IN 0.45% NACL 25,000 UNIT in 0.45% NACL 1 250ML.BAG IV SCH (09:55)
[2019-12-06 11:52] LABS: Glucose,Whole Blood 133 mg/dL (75-99)
[2019-12-06 12:15] VITALS: BP 138/82; PULSE 64; TEMP 98
--- NOTE | 2019-12-06 13:44 | P.DS ---
Providers Date of admission: 12/05/19 09:43 Attending physician: Lang Pederson Consults: 12/05/19 09:25 Consult Physician Urgent Consulting Provider: Neftaly Delgado Consult Reason/Comments: syncope, chest pain Do you want consulting provider notified?: Yes Primary care physician: Tony Skinner [facility] Course: 54-year-old pleasant female came in after syncopal episode patient was having a bowel movement after with the patient felt lightheaded completely flushed and with the help of the patient was able to lie on the bed subsequently lost consciousness for about 10 minutes. When EMS arrived her blood pressure is extremely low and it was noted about 40 x 30 the may not be accurate. Patient was given a fluid bolus was subsequently transferred to ER. Patient to denied any obvious chest pain was although she did complain of chest pain. Physician patient apparently complained of shoulder pain to the and the left shoulder area. This pain is not associated syncope denied any shortness of breath diaphoresis nausea or vomiting associated with the patient and diarrhea.. Patient EKG showed sinus rhythm without any acute ST-T wave changes. But QTC is bit prolonged. Patient is on Risperdal which can prolong QT as well as Zoloft. I'll repeat another EKG if it continues to be prolonged then and we may need to change one of these medications. 12/06/2019 Patient's alkaloids were corrected including magnesium. Patient was cleared by cardiology patient had a mild elevation of troponins which are fairly stable and a. To be secondary to syncopal event rather than acute microinfarction because of which cardiology is not recommending in any further intervention cleared for discharge. Patient had an echocardiogram which did not show any significant abnormality patient had a normal ejection fraction. After A correction we repeated an EKG today which showed QTC below 450 ms no medication changes are being made. Patient will be discharged today PHYSICAL EXAMINATION: GENERAL: The patient is alert and oriented x3, not in any acute distress. Well developed, well nourished. HEENT: Pupils are round and equally reacting to light. EOMI. No scleral icterus. No conjunctival pallor. Normocephalic, atraumatic. No pharyngeal erythema. No thyromegaly. CARDIOVASCULAR: S1 and S2 present. No murmurs, rubs, or gallops. PULMONARY: Chest is clear to auscultation, no wheezing or crackles. ABDOMEN: Soft, nontender, nondistended, normoactive bowel sounds. No palpable organomegaly. MUSCULOSKELETAL: No joint swelling or deformity. EXTREMITIES: No cyanosis, clubbing, or pedal edema. NEUROLOGICAL: Gross neurological examination did not reveal any focal deficits. SKIN: No rashes. Assessment and Plan Plan: Syncope: Possibly vasovagal from the history. -Prolonged QT with QTC resolved after correction of electrolyte electrolytes -Questionable history of chest pain: Rule out a concurrent syndromes cardio evaluate the patient cleared for discharge echocardiogram within normal limits.any wall motion abnormalities -Type 2 diabetes mellitus -Hyperlipidemia -COPD without any acute exacerbation -Continued nicotine use: Counseling was provided Patient Condition at Discharge: Serious Plan - Discharge Summary Discharge Rx Participant: Yes New Discharge Prescriptions: Continue risperiDONE [RisperDAL] 2 mg PO HS Sertraline HCl [Zoloft] 100 mg PO DAILY metFORMIN HCL [Glucophage] 500 mg PO DAILY Atorvastatin [Lipitor] 10 mg PO HS Mometasone/Formoterol [Dulera 200 Mcg-5 Mcg Inhaler] 2 puff INHALATION RT-BID Equi-Fem 2 tab PO DAILY Albuterol Sulfate [Ventolin HFA] 1 - 2 puff INHALATION RT-Q6H PRN PRN Reason: Shortness Of Breath Cranberry Fruit Extract [Cranberry] 500 mg PO DAILY Discharge Medication List Atorvastatin [Lipitor] 10 mg PO HS 07/31/17 [History] Sertraline HCl [Zoloft] 100 mg PO DAILY 07/31/17 [History] metFORMIN HCL [Glucophage] 500 mg PO DAILY 07/31/17 [History] risperiDONE [RisperDAL] 2 mg PO HS 07/31/17 [History] Equi-Fem 2 tab PO DAILY 11/01/17 [History] Mometasone/Formoterol [Dulera 200 Mcg-5 Mcg Inhaler] 2 puff INHALATION RT-BID 11/01/17 [History] Albuterol Sulfate [Ventolin HFA] 1 - 2 puff INHALATION RT-Q6H PRN 12/05/19 [History] Cranberry Fruit Extract [Cranberry] 500 mg PO DAILY 12/05/19 [History] Follow up Appointment(s)/Referral(s): Tony Skinner MD [Primary Care Provider] - 3 Days (please call office when open to make follow up appointment) Neftaly Delgado MD [STAFF PHYSICIAN] - 2 Weeks (Please call the office Sunday for an appointment. ) Discharge Disposition: HOME SELF-CARE
--- NOTE | 2019-12-06 13:54 | P.PN ---
Subjective Patient is doing well. She denies any chest discomfort dizziness lightheadedness or palpitations She was admitted with episodes of syncope. She was nauseous sweaty very dizzy and she passed out repeatedly. She was pale according to her She's had at least 3 such episodes In addition she's had a GI symptoms and has loose stools No new medications On examination she is afebrile 90F pulse rate in the 60s blood pressure 138/82 mmHg Heart sounds are normal Breath sounds are clear Extended warm no edema She is resting comfortably in bed Impression likely vasovagal episodes Diarrhea, unclear etiology Mild sinus bradycardia normal heart rates now Her EKG is normal Cardiac enzymes borderline abnormal 0.054 She is diabetic Her 2-D echo is normal From a cardiac standpoint after IV fluids she can get up and walk around and if she does not have any spells or does not have any further diarrhea she can go home and follow-up with us as an outpatient in 1-2 weeks Objective - Vital Signs Vital signs: Vital Signs Temp 98.0 F 12/06/19 12:14 Pulse 64 12/06/19 12:14 Resp 18 12/06/19 12:14 BP 138/82 12/06/19 12:14 Pulse Ox 96 12/06/19 12:14 Intake & Output 12/05/19 12/06/19 12/06/19 18:59 06:59 18:59 Intake Total 195.170 Balance 195.170 Weight 83.007 kg 82.8 kg Intake: Intake, IV Titration 195.170 Amount Heparin Sod,Pork in 0.45% 195.170 NaCl 25,000 unit In 0.45 % NaCl 1 250ml.bag @ 12 UNITS/KG/HR 9.961 mls/hr IV .Q24H [facility] Rx#: [id number] Other: Voiding Method Toilet # Voids 4 1 2 - Labs CBC & Chem 7: 12/06/19 05:53 12/06/19 05:53 Labs: Abnormal Lab Results - Last 24 Hours (Table) 12/05/19 12/05/19 12/05/19 Range/Units 13:57 16:30 19:52 APTT 51.0 H (22.0-30.0) sec Chloride (98-107) mmol/L Glucose (74-99) mg/dL POC Glucose (mg/dL) 102 H (75-99) mg/dL Troponin I 0.128 H* (0.000-0.034) ng/mL HDL Cholesterol (40-60) mg/dL 12/05/19 12/05/19 12/06/19 Range/Units 19:52 20:40 05:53 APTT (22.0-30.0) sec Chloride (98-107) mmol/L Glucose (74-99) mg/dL POC Glucose (mg/dL) 108 H (75-99) mg/dL Troponin I 0.054 H* (0.000-0.034) ng/mL HDL Cholesterol 36 L (40-60) mg/dL 12/06/19 12/06/19 12/06/19 Range/Units 05:53 05:56 07:36 APTT 42.8 H (22.0-30.0) sec Chloride 112 H (98-107) mmol/L Glucose 102 H (74-99) mg/dL POC Glucose (mg/dL) 106 H (75-99) mg/dL Troponin I (0.000-0.034) ng/mL HDL Cholesterol (40-60) mg/dL 12/06/19 Range/Units 11:50 APTT (22.0-30.0) sec Chloride (98-107) mmol/L Glucose (74-99) mg/dL POC Glucose (mg/dL) 133 H (75-99) mg/dL Troponin I (0.000-0.034) ng/mL HDL Cholesterol (40-60) mg/dL
== END 2019-12-06 14:46 | disposition home or self-care (01) ==
LOC: EC 07:14 → 1SOBS 09:43 → 3SCARD 20:31
PROVIDERS: ADMIT Hospitalist; ATTEND Hospitalist
DX: R55 Syncope and collapse (principal); R94.31 Abnormal electrocardiogram [ECG] [EKG]; I95.9 Hypotension, unspecified; R79.89 Other specified abnormal findings of blood chemistry; E87.6 Hypokalemia; E83.42 Hypomagnesemia; D72.829 Elevated white blood cell count, unspecified; J44.9 Chronic obstructive pulmonary disease, unspecified; E78.5 Hyperlipidemia, unspecified; E11.9 Type 2 diabetes mellitus without complications; R00.1 Bradycardia, unspecified; R07.89 Other chest pain; R42 Dizziness and giddiness; R11.0 Nausea; R19.7 Diarrhea, unspecified; R61 Generalized hyperhidrosis; M25.512 Pain in left shoulder; F32.9 Major depressive disorder, single episode, unspecified; F17.210 Nicotine dependence, cigarettes, uncomplicated; Z79.84 Long term (current) use of oral hypoglycemic drugs; Z79.51 Long term (current) use of inhaled steroids; Z79.899 Other long term (current) drug therapy; Z98.51 Tubal ligation status; Z98.49 Cataract extraction status, unspecified eye; Z80.9 Family history of malignant neoplasm, unspecified; Z82.49 Family history of ischemic heart disease and other diseases of the circulatory system; Z82.3 Family history of stroke
CPT/HCPCS: 96376; 96365; 96366 ×2; 96367; 93005 ×2; 99285; 36415; 94640; 93306; 85379; 83880; 80061; 80053; 80048; 83605; 83735 ×2; 84484; 85025 ×2; 85610; 85730 ×2; 81001; 71046; 71275; G0378 ×3; J1644 ×3; J3475; Q9967

== ENCOUNTER → 2023-08-24 | Outpatient (CLI) | payer BC ==
--- NOTE | 2023-08-24 10:05 | MM ---
Reason for Exam: Clinical finding. Baseline mammogram. Indicated Problems: Pain of the right side for 1 Month(s). Patient History: Menarche at age 14. First Full-Term at age 24. Postmenopausal. Risk Values: Tenisha 5 year model risk: 1.1%. NCI Lifetime model risk: 7.2%. Prior Study Comparison: Patient's first Mammogram. No prior studies available for comparison. Tissue Density: There are scattered areas of fibroglandular density. Findings: Analyzed By CAD. The pattern is symmetrical. Within the left breast is an oval circumscribed density at the 6:00 position 4 cm from the nipple. This has a transverse dimension of 0.4 cm. Additional evaluation with ultrasound is recommended. Right breast:No suspicious groups of microcalcifications, spiculated or lobular masses, architectural distortion or other secondary signs of malignancy are mammographically apparent. Overall Assessment: Incomplete: need additional imaging evaluation, BI-RAD 0 Management: Diagnostic Breast Ultrasound of the left breast. A negative mammogram report should not preclude additional follow up of suspicious palpable abnormalities. Patient should continue monthly self breast exam. A clinical breast exam by your physician is recommended on an annual basis and results should be correlated with mammographic findings. Note on Tenisha scores and lifetime risk: 1. A Tenisha score greater than 3% is considered moderate risk. If this is the case, consider specialist referral to assess eligibility for a risk reducing agent. 2. If overall lifetime risk for the development of breast cancer is 20% or higher, the patient may qualify for future screening with alternating mammogram and breast MRI. Electronically signed and approved by: Francisco Javier Tyler D.O. Radiologis
--- NOTE | 2023-08-24 10:47 | USB ---
Reason for Exam: Additional evaluation requested from abnormal screening. Patient History: Menarche at age 14. First Full-Term at age 24. Postmenopausal. Risk Values: Tenisha 5 year model risk: 1.1%. NCI Lifetime model risk: 7.2%. Technique: Method: Targeted. Findings: The lower section of the breast of both breasts, the axilla of the right breast and the retroareolar of the right breast were scanned. There is a 0.3 cm simple appearing cyst 6:00 position left breast 5 cm from the nipple. This area appears to correlate with the mammographic findings. Overall Assessment: Benign, BI-RAD 2 Management: Screening Mammogram of both breasts in 1 year. A clinical breast exam by your left breast is recommended on an annual basis and results should be correlated with mammographic findings. This exam should not preclude additional follow-up of suspicious palpable abnormalities. Results were given to the patient verbally at the time of exam. Electronically signed and approved by: Francisco Javier Tyler D.O. Radiologis
== END | disposition home or self-care (01) ==
LOC: RADMAMWWP 09:34
PROVIDERS: ATTEND Family Medicine
DX: N60.02 Solitary cyst of left breast (principal); R92.323 Mammographic fibroglandular density, bilateral breasts; N64.4 Mastodynia; N64.52 Nipple discharge; Z78.0 Asymptomatic menopausal state
CPT/HCPCS: 77062; 77066